=== PATIENT | male | born 1975 | race Caucasian/White ===

== ENCOUNTER 2016-12-03 20:13 | Emergency (ER) | payer OTHER ==
[~2016-12-03] VITALS: Ht 182.9 cm; Wt 97.5 kg
[2016-12-03 20:19] VITALS: BP 115/69
--- NOTE | 2016-12-03 21:56 | NUR ---
PATIENT AMBULATED WITH CRUTCHES TO ER BED 5.
--- NOTE | 2016-12-03 22:22 | NUR ---
41Y M PRESENTED TO ER C/O OF PAIN TO RT KNEE X2 DAYS AFTER PT STEPPED ON A BALL AND TWISTED HIS LEG. PAIN IS 10/10 IN SCALE.
--- NOTE | 2016-12-03 22:35 | NUR ---
PATIENT BEING EVALUATED BY DR. COCHRAN.
[2016-12-03] MEDS ORDERED: IBUPROFEN 800 MG TAB PO ONE (22:45)
[2016-12-03 23:08] VITALS: BP 118/70
--- NOTE | 2016-12-03 23:10 | NUR ---
Patient discharged with v/s stable. Written and verbal after care instructions given and explained. Patient alert, oriented and verbalized understanding of instructions. Ambulatory with CRUTCHES. All questions addressed prior to discharge. ID band removed. Patient advised to follow up with PMD. Rx of MOTRIN given. Patient educated on indication of medication including possible reaction and side effects. Opportunity to ask questions provided and answered.
== END 2016-12-03 23:10 | disposition home or self-care (01) ==
LOC: MED 20:13
DX: S89.81XA Other specified injuries of right lower leg, initial encounter (principal); Z88.0 Allergy status to penicillin; W21.9XXA Striking against or struck by unspecified sports equipment, initial encounter; Y93.89 Activity, other specified; Y92.89 Other specified places as the place of occurrence of the external cause; Y99.8 Other external cause status